=== PATIENT | female | born 1965 | race Caucasian/White ===

== ENCOUNTER 2023-02-27 23:27 | Emergency (ER) | payer MEDICAID ==
[~2023-02-27] VITALS: Ht 167.6 cm; Wt 67.6 kg
[~2023-02-27 23:27] MED LIST: HYDR-4383 PO
[2023-02-28] MEDS ORDERED: amoxicillin 250mg capsule PO ONE (00:20)
[2023-02-28] MEDS ORDERED: ondansetron 4mg rapidly disintigrating tab PO ONE (00:20)
[2023-02-28] MEDS ORDERED: azithromycin 250mg tablet PO ONE (00:20)
[2023-02-28] MEDS ORDERED: AZIT-83 PO (00:21)
[2023-02-28] MEDS ORDERED: AMOX500C2 PO (00:21)
[2023-02-28 01:06] VITALS: BP 142/84
== END 2023-02-28 01:09 | disposition home or self-care (01) ==
LOC: ER 23:27
DX: J18.9 Pneumonia, unspecified organism (principal); F15.20 Other stimulant dependence, uncomplicated; Z98.51 Tubal ligation status; Z56.0 Unemployment, unspecified
CPT/HCPCS: 71046; 99284